=== PATIENT | female | born 1995 | race Caucasian/White ===

== ENCOUNTER 2017-04-14 11:15 | Outpatient (CLI) | payer MEDICAID, SELFPAY ==
[2017-04-14 11:33] VITALS: BMI 26.2
--- NOTE | 2017-05-01 23:08 | OB.TRI.NOTE ---
History of Present Illness Date of Service: 04/14/16 Was patient seen by the physician?: No Reason For Visit: DECREASED MOVEMENT Date of Service: 04/14/17 Final HUSEYIN: 06/30/17 Gestational age: 29 History of Present Illness: 21yo at 29wga with c/o decreased movement Home Medications Medication Instructions Recorded Vits [Prenatabs FA] 1 tablet PO DAILY 03/26/17 Azithromycin [Zithromax] 250 mg PO DAILY 4 Days tab 04/18/17 Allergies loracarbef [From Lorabid] Allergy (Verified 04/18/17 08:24) Hives Sulfa (Sulfonamide Antibiotics) Allergy (Verified 04/18/17 08:24) Hives Cephalosporins Adverse Reaction (Verified 04/18/17 08:24) Nausea/Vom/Diarrhea Physical Exam Vitals: avss NST - FHR Rate Baby A Baseline: 135 Variability:: Moderate Accelerations:: 15 x 15 Decelerations:: None NST Reactive:: Yes FHR Category:: Category I Uterine Activity:: 0/10 min Impression/Plan 21yo @ 29wga with reactive NST, Cat I FHR -d/c home
== END 2017-04-14 13:20 | disposition home or self-care (01) ==
LOC: WPOUT 11:24 → WP 11:25
PROVIDERS: Visit Provider Obstetrics & Gynecology
DX: O36.8130 Decreased fetal movements, third trimester, not applicable or unspecified (principal); Z3A.29 29 weeks gestation of pregnancy
CPT/HCPCS: 59025; 59050; 99218; G0378

== ENCOUNTER 2017-04-18 08:21 | Emergency (ER) | payer MEDICAID, SELFPAY ==
[2017-04-18 08:21] VITALS: BP 121/82; PULSE 122; RESP 18; TEMP 36.6; O2SAT 95; BMI 26.0
--- NOTE | 2017-04-18 08:36 | RAD_ITS ---
STUDY: X-RAY CHEST REASON FOR EXAM: Female, 21 years old. Cough and chest congestion for one week. The patient is 29 weeks . TECHNIQUE: PA and lateral views of the chest. The patient was shielded appropriately. COMPARISON: None. FINDINGS: There is evidence of bilateral patchy airspace disease in the right middle lobe and lingular segment of the left upper lobe. Follow-up is recommended. There is no demonstrated pleural abnormality. Normal size heart. Normal mediastinum and levi. Normal visualized pulmonary arteries. Normal visualized aortic arch and descending thoracic aorta. Normal visualized thoracic spine. Normal visualized ribs, clavicles, and shoulders. There is no demonstrated abnormality of the visualized soft tissue structures of the upper abdomen. RAD/Chest PA and Lateral IMPRESSION: Patchy airspace disease in the right middle lobe and lingular segment of the left upper lobe. Follow-up is recommended. Electronically Signed: David Shipley MD at 9:16 EST Tel [phone], Service support ,
--- NOTE | 2017-04-18 08:36 | ED.VISSUMM ---
- ER Visit Summary Date of Service: 04/18/17 Chief Complaint: Cough History of Present Illness: The patient is a 21 F past medical history of seizure disorder. Currently is 29 weeks and is due June 30. She has not been having any problems with the . States the last week she has had a productive cough of clear to greenish sputum. No hemoptysis. No chest pain. Was told she had a URI in labor and delivery 5 days ago states is not getting better want to be evaluated. She denies fever. Physical Examination: Well-appearing young female. Vital signs are stable afebrile. Pulse ox 95% room air no signs of hypoxia. H EENT exam normal. Moist wheeze membranes. TMs normal. Posterior pharynx normal. Neck nontender no lymphadenopathy. Lungs dry cough but no rales, rhonchi or wheezing. Heart tachycardic no murmur. Rate about 110-120. Abdomen soft nontender. Gravid uterus. Normal bowel sounds. Moving all 4 extremities. Neurovascular intact. Calves nontender, no edema no cords. Neurologically she is awake and alert without any focal deficits. Test Results: Chest x-ray consistent with a right lower lobe pneumonia. I did go over the chest x-ray the patient and her mother. Emergency Department Course and Treatment: Patient was ambulated in the ER her pulse ox was 94% or better. She did well. She is comfortable and wants to be discharged home. They do have a nebulizer at home. She will be started on Zithromax and given her first dose here in emergency department. She knows to push plenty of fluids and rest. Tylenol for fever. Stop smoking. And follow-up with her FLAME DEGREASER physician. She knows that she is feeling worse to return to the ER. Treatment Plan: [] Disposition: Discharge Impression: Right lower lobe pneumonia Tobacco abuse 29 weeks This note was generated with [employer] dictation software. It may contain incorrect words, spelling, and punctuation that were not noted in review of the chart prior to signing ED Disposition - Plan for ED Patient: Chief Complaint: Shortness of Breath Referrals: Care Physician,No Primary [Primary Care Provider] -
[2017-04-18 08:44] VITALS: O2SAT 97
[2017-04-18 09:12] VITALS: O2SAT 97
--- NOTE | 2017-04-18 09:18 | ED.DEP ---
ED Disposition - Plan for ED Patient: Disposition: Home or Assisted Living Chief Complaint: Shortness of Breath Instructions: ED Pneumonia Adult Prescriptions: Azithromycin [Zithromax] 250 mg PO DAILY 4 Days tab Additional Instructions: Follow-up your TRAIN EXAMINER physician as needed. Zithromax 1 pill per day starting tomorrow. Return to ER feeling worse. Plenty of fluids and rest. Tylenol for body aches and fever. Absolutely must stop smoking it is terrible for you and her unborn child
[2017-04-18] MEDS: Azithromycin 250 MG Tablet 500 MG PO (09:21)
--- NOTE | 2017-04-18 09:23 | DCINST.ED_ITS ---
ED Disposition - Plan for ED Patient: Disposition: Home or Assisted Living Chief Complaint: Shortness of Breath Instructions: ED Pneumonia Adult Prescriptions: Azithromycin [Zithromax] 250 mg PO DAILY 4 Days tab Additional Instructions: Follow-up your PERCUSSION INSTRUCTOR physician as needed. Zithromax 1 pill per day starting tomorrow. Return to ER feeling worse. Plenty of fluids and rest. Tylenol for body aches and fever. Absolutely must stop smoking it is terrible for you and her unborn child
[2017-04-18 09:24] VITALS: BP 129/84; PULSE 78; RESP 18; O2SAT 95
== END 2017-04-18 09:26 | disposition home or self-care (01) ==
PROVIDERS: Emergency Provider Emergency Medicine
DX: J18.9 Pneumonia, unspecified organism (principal); O99.513 Diseases of the respiratory system complicating pregnancy, third trimester; Z3A.29 29 weeks gestation of pregnancy; O99.333 Smoking (tobacco) complicating pregnancy, third trimester
CPT/HCPCS: 71046; 99283

== ENCOUNTER 2019-01-21 16:09 | Emergency (ER) | payer SELFPAY ==
[2019-01-21] VITALS (8 sets, daily range): BP systolic 132–135; BP diastolic 74–78; PULSE 98–102; RESP 16–17; TEMP 36.7; O2SAT 96–97; BMI 27.4
--- NOTE | 2019-01-21 16:12 | CM.ED ---
SOCIAL WORK RECEIVED CALL FROM SENIOR ORACLE SOA DEVELOPERERIC. PATIENT ASSESSED BY CRISIS, NEEDING MEDICAL CLEARANCE FOR PLACEMENT. STAFF UNRULY. Kelsie LOPEZ, QUALITY CONTROL MANAGER, FREELANCE WEB DESIGNER.
--- NOTE | 2019-01-21 16:24 | ED.DCSUM_ITS ---
- ER Visit Summary Date of Service: 01/21/19 Chief Complaint: Suicidal ideation History of Present Illness: The patient is a 23 F who presents with suicidal ideations that have been getting worse over the past few months. Patient states she has thought of stabbing herself. Patient states her mom makes it worse. Patient states her children also make it worse at times. Patient was seen at the [facility] today and was referred to the emergency department for medical clearance. Physical Examination: Vital signs are stable. Patient is afebrile. Patient is in no acute distress. Oral mucosa is pink and moist. Neck is supple. Trachea is midline. There is no JVD noted. Heart was regular rate and rhythm. Lungs are clear and equal bilateral. Abdomen is soft. Bowel sounds are normal. There is no tenderness. There is no guarding noted. Skin is warm dry. Cranial nerves II through XII are intact. There are no focal motor or sensory deficits noted. Patient does have a flat affect. Patient admits to suicidal ideation with a plan to stab herself. Test Results: CBC, basic metabolic profile, hepatic profile, serum hCG, serum alcohol level, and urine tox screen were obtained and were all normal. Emergency Department Course and Treatment: [place] slip was placed on the patient. Patient was stable here in the emergency department. Crisis will be in to evaluate the patient. Disposition: Pending per crisis evaluation Impression: Depression with suicidal ideation This note was generated with [employer] dictation software. It may contain incorrect words, spelling, and punctuation that were not noted in review of the chart prior to signing ED Disposition - Plan for ED Patient: Referrals: Care Physician,No Primary [Primary Care Provider] -
[2019-01-21 17:16] LABS: AST(SGOT) 9 U/L (15-37); Alanine Aminotransfer ALT/SGPT 15 U/L (13-56); Albumin, Serum 4.4 g/dL (3.2-5.0); Alkaline Phosphatase 93 U/L (45-117); Anion Gap 8 (5-15); BUN 9 mg/dL (7-18); BUN/Creat Ratio 13.1 RATIO (10-20); Bilirubin, Direct 0.14 mg/dL (0.00-0.30); Calcium,Total 9.4 mg/dL (8.5-10.1); Chloride 104 mmol/L (98-107); Creatinine, Serum 0.68 mg/dL (0.55-1.02); EST Glomerular Filtration Rate 112 mL/min (>60); Est Glom Filt Rate - Afr Amer 135 mL/min (>60); Globulin 3.4 g/dL (2.2-4.2); Glucose 90 mg/dL (74-106); Potassium 3.6 mmol/L (3.5-5.1); Protein, Total 7.8 g/dL (6.4-8.2); Sodium Level 139 mmol/L (136-145)
[2019-01-21 17:19] LABS: Absolute Lymphocyte Count 2.61 X10^3/uL (0.83-4.51); Absolute Neutrophil Count 4.7 X10^3/uL (2.0-7.7); Basophil# 0.05 X10^3/uL; Basophil% 0.6 % (0-1); Eosinophil# 0.08 X10^3/uL; Hematocrit 45.4 % (37-47); Hemoglobin 14.9 g/dL (12.0-15.0); Lymphocyte # 2.61 X10^3/ul (4.0); Lymphocyte % 33.2 % (19-41); Mean Corp Hgb Conc 32.8 g/dL (32-36); Mean Corpuscular Hgb 28.9 pg (27.0-32.0); Mean Corpuscular Volume 88.2 fL (81-99); Mean Platelet Vol. 9.4 fl (6.2-12.0); Monocyte# 0.34 X10^3/uL; Monocyte% 4.3 % (0-10); NRBC Flagged by Analyzer 0 % (0-5); Neutrophil # 4.74 X10^3/uL (2.7-7.7); Neutrophil % 60.5 % (47-70); Platelet Count 349 K/mm3 (150-450); RBC Distribution Width CV 13.1 % (11.6-14.6); RBC Distribution Width SD 42.5 fl (35.1-43.9); Red Blood Count 5.15 M/mm3 (4.2-5.4); White Blood Count 7.9 K/mm3 (4.4-11.0)
[2019-01-21 17:21] LABS: Amphetamine Urine VISTA NEGATIVE (<1000 ng/mL); Barbiturate Urine VISTA NEGATIVE (< 200 ng/mL); Benzodiazepine Urine VISTA NEGATIVE (< 200 ng/mL); Cocaine Urine VISTA NEGATIVE (< 300 ng/mL); Ecstacy Urine VISTA NEGATIVE (< 500 ng/mL); Methadone Urine VISTA NEGATIVE (< 300 ng/mL); PCP Urine VISTA NEGATIVE (< 25 ng/mL); THC Urine VISTA NEGATIVE (< 50 ng/mL); Vista UDS pH Range 6
[2019-01-21 17:51] LABS: Internal QC Validated? YES +Cl - CLEAR BKGD; Pregnancy, Serum, hCG Quali. NEGATIVE Negative
--- NOTE | 2019-01-21 19:54 | CM.ED ---
SOCIAL WORK ATTEMPTED TO CONTACT TIMBER INSPECTOR SUPERVISOR MAPPING TO CHECK ON STATUS OF PLACEMENT. AFTER HOURS DIPLOMA MAKER TO HAVE [facility] CALL THIS WORKER BACK. AWAITING CALL BACK AT THIS TIME. STAFF UNRULY. Kelsie LOPEZ MSW, GUITAR MAKER HAND.
--- NOTE | 2019-01-21 22:15 | ED.RN ---
pop from crisis called leaving [facility] will be on way to see patient and work on transfer at this time
[2019-01-22] VITALS (9 sets, daily range): BP systolic 113–115; BP diastolic 56–75; PULSE 85–98; RESP 14–16; O2SAT 98
--- NOTE | 2019-01-22 00:06 | ED.RN ---
BRANDAN WITH CRISIS EVERYTHING IS IN WITH [facility], JUST WAITING ON A ROOM
[2019-01-22] MEDS: LORazepam 0.5 MG Tablet PO (00:28)
--- NOTE | 2019-01-22 00:40 | EKG12_ITS ---
Test Reason : MENTAL HEALTH Blood Pressure : / mmHG Vent. Rate : 074 BPM Atrial Rate : 074 BPM P-R Int : 144 ms QRS Dur : 094 ms QT Int : 366 ms P-R-T Axes : 035 061 058 degrees QTc Int : 406 ms Sinus rhythm with marked sinus arrhythmia Otherwise normal ECG Confirmed by RYLEY YANES, FEMI ([id number]), art editor PALLAVI AUGUSTE ([id number]) on 01/26/2019 2:14:43 PM Referred By: RENE Confirmed By:FEMI HEDRICK MD
--- NOTE | 2019-01-22 07:29 | NURSING ---
[facility]. TALKED TO RUPERT. HE WILL CALL FOR TRANSPORT
--- NOTE | 2019-01-22 07:38 | ED.RN ---
Pt sleeping without distress.
--- NOTE | 2019-01-22 07:40 | NURSING ---
[facility] TO ARRIVE AT 0830.
== END 2019-01-22 08:58 ==
LOC: ED 16:41
PROVIDERS: Emergency Provider Emergency Medicine
DX: R45.851 Suicidal ideations (principal); F32.9 Major depressive disorder, single episode, unspecified; F41.9 Anxiety disorder, unspecified; J45.909 Unspecified asthma, uncomplicated; F17.210 Nicotine dependence, cigarettes, uncomplicated
CPT/HCPCS: 80048; 80076; 80307; 80320; 84703; 85025; 93005; 99285; G0480

== ENCOUNTER 2019-02-12 13:05 | Emergency (ER) | payer SELFPAY ==
[2019-01-21 16:10] VITALS: BMI 27.4
[2019-02-12 13:06] VITALS: BP 128/70; PULSE 90; RESP 16; TEMP 36.6; O2SAT 99; BMI 26.2
--- NOTE | 2019-02-12 13:29 | ED.DCSUM_ITS ---
- ER Visit Summary Date of Service: 02/12/19 Chief Complaint: Sexual partner with positive chlamydia patient wants to be treated History of Present Illness: The patient is a 23 F states her sexual partner was recently positive for chlamydia. She states her last menstrual period was 2 weeks ago and she is had a prior tubal ligation. She wants to be treated. She denies any vaginal bleeding or discharge. Physical Examination: Well-appearing young female no acute distress. Vital si gns are stable afebrile. H EENT exam unremarkable. Lungs are clear. Heart regular rhythm no murmur. Abdomen soft and nontender. She is moving all 4 extremities. Neurologically she is awake and alert. Test Results: None Emergency Department Course and Treatment: Patient treated with IM Rocephin and p.o. Zithromax. Treatment Plan: Follow-up with her PCP as needed. Disposition: Discharge Impression: Exposed to an STD wanted treated This note was generated with [employer] dictation software. It may contain incorrect words, spelling, and punctuation that were not noted in review of the chart prior to signing ED Disposition - Plan for ED Patient: Referrals: Care Physician,No Primary [Primary Care Provider] -
--- NOTE | 2019-02-12 13:31 | DCINST.ED_ITS ---
ED Disposition - Plan for ED Patient: Disposition: Home or Assisted Living Referrals: Mathew Melton MD [STAFF PHYSICIAN] - As Needed Additional Instructions: Follow-up with an ASPHALT PLANT LABORER if you start developing symptoms.
[2019-02-12] MEDS: Azithromycin 250 MG Tablet 1000 MG PO (13:36)
[2019-02-12] MEDS: Ceftriaxone 500 MG Vial 250 MG IM (14:14)
[2019-02-12 14:16] VITALS: BP 128/81; PULSE 80; RESP 16; O2SAT 98
== END 2019-02-12 14:35 | disposition home or self-care (01) ==
LOC: ED 13:48
PROVIDERS: Emergency Provider Emergency Medicine
DX: Z20.2 Contact with and (suspected) exposure to infections with a predominantly sexual mode of transmission (principal); Z98.51 Tubal ligation status; F32.9 Major depressive disorder, single episode, unspecified; F41.9 Anxiety disorder, unspecified; Z72.0 Tobacco use
CPT/HCPCS: 96372; 99282

== ENCOUNTER 2025-02-16 20:48 | Emergency (ER) | payer MEDICAID, SELFPAY ==
[2025-02-16 20:49] VITALS: BP 134/105; PULSE 120; RESP 16; TEMP 36.6; O2SAT 98; BMI 34.9
--- NOTE | 2025-02-16 21:05 | EDS_ITS ---
HPI HPI - Psych History of Present Illness Chief Complaint: Suicidal Informant: patient Onset/Context/Timing Onset: Weeks (2) Context: Gradual Onset Conflict: Family Timing: Continuous Worsened by: Situational factors Relieved by: Nothing Associated Symptoms Associated Symptoms - Psych: Positive for Depressed, Change in sleeping, Decreased Interest and Auditory Hallucinations; Negative for Change in Eating, Suicidal Thoughts, Paranoia or Visual Hallucinations Narrative Narrative: Patient presents with suicidal ideations that began today. Patient states that the she has been getting more depressed over the past 2 weeks since her brother's birthday. Patient states her brother is . The patient states she has arguments with her family around this time. Patient denies any plan for suicide. Patient states she just feels like she does not want to be here anymore. Patient states she has been sleeping more over the past couple weeks. Patient admits to some auditory hallucinations where she hears some noises but did not hear any voices that are telling her to harm herself. Patient denies any visual hallucinations. PFSH [facility] Medical History (Updated 02/16/25 @ 22:[address] Josr Galvez DO) Insomnia Epilepsy Depression Anxiety Bipolar 1 disorder Home Medications ?Medication ?Instructions ?Recorded ?Last Taken ?Type hydroxyzine pamoate 50 mg capsule 25 mg PO 4X/DAY PRN PRN Anxiety 02/12/19 Unknown History trazodone 50 mg tablet 50 mg PO QHS PRN Insomnia Unknown History venlafaxine 75 mg tablet 75 mg PO DAILY 02/12/19 Unkn own History Allergy/AdvReac Type Severity Reaction Status Date / Time loracarbef (From Lorabid) Allergy Hives Verified 02/16/25 20:55 Sulfa (Sulfonamide Allergy Hives Verified 02/16/25 20:55 Antibiotics) Cephalosporins AdvReac Nausea/Vom/ Verified 02/16/25 20:55 Diarrhea Surgical History (Updated 02/16/25 @ 21:[address] Josr Galvez DO) Hx of tubal ligation History of section History of tonsillectomy and adenoidectomy Social History (Updated 02/16/25 @ 21:[address] Josr Galvez DO) Smoking Status: Current every day smoker tobacco type: cigarettes alcohol intake: current alcohol intake frequency: 3 or more drinks per day Alcohol type: hard liquor ROS ROS ED Constitutional Constitutional ED: Denies chills or fever(s) Eyes Eyes: Denies blurry vision or change in vision ENT ENT ED: Denies rhinorrhea or sore throat Cardiovascular Cardiovascular: Denies chest pain or palpitations Respiratory/Chest Respiratory/Chest: Denies cough or dyspnea Gastrointestinal Gastrointestinal: Denies nausea or vomiting Genitourinary Genitourinary ED: Denies dysuria or hematuria Musculoskeletal Musculoskeletal: Denies back pain or neck pain Integumentary Denies abscess or rash Neurologic Neurologic: Denies headache(s) or weakness Psychiatric Psychiatric: Reports depression Allergic/Immunologic Allergic/Immunologic ED: Denies mouth swelling or urticaria EXAM Physical Exam Const Vital Signs: 02/16/25 20:49 Temperature 97.9 F Temperature Source Temporal Pulse Rate 120 H Respiratory Rate 16 Blood Pressure 134/105 H Blood Pressure Mean 114 Pulse Ox 98 Positive well nourished and well developed Constitutional Narrative: BMI is 34.9. General Appearance ED: well developed, irritable and NAD HEENT Reports moist mucous membranes normocephalic and atraumatic Neck supple and no JVD Resp normal respiratory effort and clear to auscultation bilaterally Cardio Rate: regular rate Rhythm: regular rhythm GI non-tender and non-distended Palpation: soft Extremity normal to inspection Neuro oriented x3, CN's II-XII intact bilaterally and no sensory deficits noted Kriss Coma Scale: document GCS findings Spontaneous Obeys Commands Oriented 15 Sensorium / Orientation: alert Psych cooperative Attitude: agitated Activity / Motor Behavior: restless Speech: excessive and pressured Mood & Affect: elevated mood, irritable and labile affect Thought Process: circumstantial Thought Content: No suicidality, No homicidality and No delusion(s) MDM MDM MDM Narrative Medical decision making narrative: Medical screening labs will be obtained. CBC will be obtained to assess for leukocytosis and anemia. Basic metabolic profile will be obtained to assess for electrolyte abnormality and renal function. Serum hCG will be obtained to assess for . Serum alcohol level will be obtained to assess for alcohol intoxication. Urine drug screen will be obtained to assess for subs tance abuse. History & Record Review Additional record(s) reviewed:: Prior labs Lab Data Attestation: I reviewed the patient's lab results. Lab results narrative: CBC was reviewed and was within normal limits. Basic metabolic profile was reviewed and was essentially within normal limits. Serum hCG was reviewed and was negative. Serum alcohol level was reviewed and was elevated at 197.0. Labs: Laboratory Results - last 24 hr 02/16/25 21:25 WBC 9.8 RBC 4.96 Hgb 14.7 Hct 43.8 MCV 88.3 MCH 29.6 MCHC 33.6 RDW Std Deviation 42.7 RDW Coeff of Lacie 13.2 Plt Count 297 MPV 9.3 Immature Gran % (Auto) 0.400 Neut % (Auto) 46.6 L Lymph % (Auto) 44.3 H [place] % (Auto) 5.8 Eos % (Auto) 2.0 Baso % (Auto) 0.9 Absolute Neuts (auto) 4.6 Absolute Lymphs (auto) 4.34 Nucleated RBC % 0 Sodium 138 Potassium 3.6 Chloride 104 Carbon Dioxide 19.0 L Anion Gap 15 BUN 9 Creatinine 0.73 Estim Creat Clear Calc 119.51 Est GFR (MDRD) Non-Af 113 BUN/Creatinine Ratio 12.3 Glucose 113 H Calcium 8.8 Serum , Qual NEGATIVE Ethyl Alcohol 197.0 H Treatment and Re-Evaluation Narrative: Patient will need to be reevaluated by crisis when she is legally sober. Care of the patient was turned over to the oncoming physician pending reevaluation by crisis counselor. Discharge Plan Triage Chief Complaint: Suicidal ED Provider: Josr Galvez Dx/Rx/DC Orders Clinical Impression: Depression, Alcohol intoxication Prescriptions: No Action venlafaxine 75 MG tablet 75 mg PO DAILY trazodone 50 MG tablet 50 mg PO QHS PRN (Reason: Insomnia) hydroxyzine pamoate 50 MG capsule 25 mg PO 4X/DAY PRN PRN (Reason: Anxiety) Primary Care Provider: Care Physician,No Primary Referrals: Care Physician,No Primary [Primary Care Provider, Medical] Print Language: Citizen Of [place]
[2025-02-16 22:05] LABS: Hematocrit 43.8 % (37-47); Hemoglobin 14.7 g/dL (12.0-15.0); Immature Granulocytes Count 0.040 X10^3/uL (0.0-0.0); Mean Corp Hgb Conc 33.6 g/dL (32-36); Mean Corpuscular Volume 88.3 fL (81-99); Mean Platelet Vol. 9.3 fl (6.2-12.0); NRBC Flagged by Analyzer 0 % (0-5); Platelet Count 297 K/mm3 (150-450); RBC Distribution Width CV 13.2 % (11.6-14.6); RBC Distribution Width SD 42.7 fl (35.1-43.9); Red Blood Count 4.96 M/mm3 (4.2-5.4); White Blood Count 9.8 K/mm3 (4.4-11.0)
[2025-02-16 22:10] LABS: Alcohol, Blood (Medical)-Serum 197.0 mg/dL (<=10.0); Anion Gap 15 (5-15); BUN 9 mg/dL (4-19); BUN/Creat Ratio 12.3 RATIO (10-20); Calcium,Total 8.8 mg/dL (7.6-11.0); Carbon Dioxide 19.0 mmol/L (21.0-32.0); Chloride 104 mmol/L (98-108); Estimated Creatinine Clearance 119.51 ml/min (50-250); Glucose 113 mg/dL (70-99); Potassium 3.6 mmol/L (3.3-5.1)
[2025-02-16 22:12] LABS: Internal QC Validated? YES +Cl - CLEAR BKGD; Pregnancy, Serum, hCG Quali. NEGATIVE Negative
[2025-02-16 22:15] LABS: Record Kit Lot#, Serum Preg. 980607
[2025-02-16] MEDS: Nicotine (PBKC) 21 MG Patch TD (22:40)
--- NOTE | 2025-02-16 22:48 | ED.RN ---
Pt tells this RN all of my medications are on my phone in the health [facility]. Pt gave this RN permission to look in phone for medications to verify. This RN unable to obtain information through raciel on phone. Pt not a good historian on medications she takes regularly, states I haven't taken my meds for the last week
--- NOTE | 2025-02-16 22:59 | ED.RN ---
Sitter walked this pt to the bathroom, on the way back to the room, pt approaches this RN and states get her the fuck out of my room and storms back into her room. this RN at bedside asking pt what happened. Pt states she has been rude ever since she walked in her, when she walked me to the bathroom she was making shitty remarks and talking to someone in the rey about me, get her the fuck out of my room. This RN explained that we may not have another sitter at this time and that it will need to be discussed with the charge nurse. Charge nurse to bedside at this time.
[2025-02-16 23:33] VITALS: BP 146/94; PULSE 124; RESP 17; O2SAT 98
[2025-02-16 23:35] LABS: Barbiturate Urine NEGATIVE (< 200 ng/mL); Benzodiazepine Urine NEGATIVE (< 200 ng/mL); PCP Urine NEGATIVE (< 25 ng/mL); THC Urine PRESUMPTIVE POSITIVE (< 50 ng/mL)
[2025-02-17] MEDS: hydrOXYzine PAM 25 MG Capsule PO (00:36)
[2025-02-17 02:43] LABS: Alcohol, Blood (Medical)-Serum 68.4 mg/dL (<=10.0)
[2025-02-17 05:40] VITALS: BP 114/58; PULSE 88; RESP 16; TEMP 37.2; O2SAT 99
[2025-02-17 07:16] VITALS: BP 114/58; PULSE 88; RESP 16; TEMP 37.2; O2SAT 99
--- NOTE | 2025-02-17 08:18 | PCA ---
THIS US TOOK UPDATE ETA FROM PHYSICIANS. NEW ETA 1000
--- NOTE | 2025-02-17 09:38 | PCA ---
ACCEPTED TO DR MELISA MCNAMARA UNIT N2N [phone]
== END 2025-02-17 10:53 ==
PROVIDERS: Emergency Provider Emergency Medicine; Visit Provider Emergency Medicine
DX: F10.129 Alcohol abuse with intoxication, unspecified (principal); F32.A Depression, unspecified; Z63.8 Other specified problems related to primary support group; F17.210 Nicotine dependence, cigarettes, uncomplicated; Z98.51 Tubal ligation status; R44.0 Auditory hallucinations; R45.851 Suicidal ideations; Y90.6 Blood alcohol level of 120-199 mg/100 ml
CPT/HCPCS: 36415; 80048; 80307; 82077; 84703; 85025; 99285